=== PATIENT | female | born 1980 | race African-American/Black ===

== ENCOUNTER 2016-05-28 00:54 | Emergency (ER) | payer OTHER ==
[2016-05-28] MEDS ORDERED: ASPIRIN 81 MG TABLET, CHEWABLE PO ONE (03:19)
[2016-05-28 03:25] LABS: ABSOLUTE LYMPHOCYTES (AUTO) 0.9 10^3/uL (0.5-4.7); ABSOLUTE MONOCYTES (AUTO) 0.5 10^3/uL (0.1-1.4); ABSOLUTE NEUT (AUTO) 10.3 10^3/uL (1.7-8.2); BASOPHILS % (AUTO) 0.2 % (0-2); EOSINOPHILS % (AUTO) 0.2 % (0-6); HEMOGLOBIN 10.8 g/dL (12.0-15.5); HGB HCT DIFFERENCE -1.6; LYMPHOCYTES % (AUTO) 7.4 % (13-45); MEAN CORPUSCULAR HEMOGLOBIN 25.1 pg (27.0-33.4); MEAN CORPUSCULAR HGB CONC 31.8 g/dL (32.0-36.0); MEAN CORPUSCULAR VOLUME 79 fl (80-97); MONOCYTES % (AUTO) 4.3 % (3-13); RED BLOOD COUNT 4.31 10^6/uL (3.72-5.28); RED CELL DISTRIBUTION WIDTH 15.4 % (11.5-14.0); SEGMENTED NEUTROPHILS % (AUTO) 87.9 % (42-78); WHITE BLOOD COUNT 11.7 10^3/uL (4.0-10.5)
[2016-05-28 03:40] LABS: ALANINE AMINOTRANSFERASE 258 U/L (9-52); ALBUMIN 4.6 g/dL (3.5-5.0); ALKALINE PHOSPHATASE 154 U/L (38-126); ANION GAP 13 (5-19); ASPARTATE AMINO TRANSFERASE 731 U/L (14-36); BLOOD UREA NITROGEN 7 mg/dL (7-20); CALCIUM 10.5 mg/dL (8.4-10.2); CARBON DIOXIDE 26 mmol/L (22-30); CHLORIDE 103 mmol/L (98-107); CREATINE KINASE 217 U/L (30-135); CREATININE RESULT 0.49 mg/dL (0.52-1.25); GLUCOSE 110 mg/dL (75-110); POTASSIUM 4.4 mmol/L (3.6-5.0); SODIUM 141.7 mmol/L (137-145); TOTAL PROTEIN 8.6 g/dL (6.3-8.2)
[2016-05-28 03:52] LABS: CREATINE KINASE MB 0.23 ng/mL (<4.55)
[2016-05-28 03:57] LABS: TROPONIN I < 0.012 ng/mL
[2016-05-28 04:46] LABS: AMORPHOUS SEDIMENT,URINE TRACE /HPF; APPEARANCE,URINE CLEAR; BILIRUBIN,URINE NEGATIVE (NEGATIVE); GLUCOSE, URINE NEGATIVE (NEGATIVE); KETONES,URINE NEGATIVE (NEGATIVE); LEUKOCYTE ESTERASE,URINE NEGATIVE (NEGATIVE); NITRITE,URINE NEGATIVE (NEGATIVE); PROTEIN,URINE NEGATIVE (NEGATIVE); URINE SPECIFIC GRAVITY 1.006; UROBILINOGEN,URINE NEGATIVE mg/dL (<2.0)
[2016-05-28] MEDS ORDERED: ONDANSETRON HCL INJ/PF 4 MG/2 ML SDV IV ONE (04:51)
[2016-05-28 04:52] LABS: LIPASE 80.8 U/L (23-300)
[2016-05-28] MEDS ORDERED: NORMAL SALINE 1000 ML 1,000 ML IV ONE (04:52)
--- NOTE | 2016-05-28 04:54 | ER Document Report ---
ED General - General Chief Complaint: Chest Pain Stated Complaint: CHEST PAIN/ABDOMINAL PAIN Time seen by provider: 04:45 Notes: Patient is a 35 year old female that comes emergency department for chief complaint of nausea, vomiting, diarrhea, pain in her upper abdomen and chest. Symptoms began as diarrhea, patient states she has had 8 nonbloody episodes, she states she began having chest pain and vomiting, vomited twice and then began dry heaving. When asked where her location of chest pain as she points up near her throat, when asked where her abdominal pain is she points in the epigastric area. She denies fever. Past medical history of hypertension, GERD , denies any early family history of cardiac disease, denies any shortness of breath. TRAVEL OUTSIDE OF THE [place] IN LAST 30 DAYS: No - Related Data Allergies/Adverse Reactions: No Known Allergies Allergy (Unverified 07/08/13 05:27) Past Medical History - General Information source: Patient - Social History Smoking Status: Never Smoker Chew tobacco use (# tins/day): No Frequency of alcohol use: None Drug Abuse: None Lives with: Family Family History: Arthritis, DM, Hyperlipidemia, Hypertension, Malignancy Patient has suicidal ideation: No Patient has homicidal ideation: No - Past Medical History Cardiac Medical History: Reports: Hx Hypertension Neurological Medical History: Reports: Hx Migraine Renal/ Medical History: Denies: Hx Peritoneal Dialysis GI Medical History: Reports: Hx Gastroesophageal Reflux Disease Surgical Hx: Negative - Immunizations Immunizations up to date: Yes Hx Diphtheria, Pertussis, Tetanus Vaccination: Yes Review of Systems - Review of Systems Constitutional: No symptoms reported EENT: No symptoms reported Cardiovascular: See HPI Respiratory: No symptoms reported Gastrointestinal: See HPI Genitourinary: No symptoms reported Female Genitourinary: No symptoms reported Musculoskeletal: No symptoms reported Skin: No symptoms reported Hematologic/Lymphatic: No symptoms reported Neurological/Psychological: No symptoms reported Physical Exam - Vital signs Vitals: Temp Pulse Resp BP Pulse Ox 97.3 F 87 18 123/79 100 05/28/16 01:02 05/28/16 01:02 05/28/16 01:02 05/28/16 01:02 05/28/16 01:02 Interpretation: Normal - General General appearance: Appears well In distress: None - HEENT Head: Normocephalic, Atraumatic Eyes: Normal Conjunctiva: Normal Extraocular movements intact: Yes Eyelashes: Normal Pupils: PERRL Nasal: Normal Mouth/Lips: Normal Mucous membranes: Normal Pharynx: Normal Neck: Normal - Respiratory Respiratory status: No respiratory distress Chest status: Tender - Mildly tender in the mid upper chest Breath sounds: Normal. No: Decreased air movement, Wheezing Chest palpation: Normal - Cardiovascular Rhythm: Regular Heart sounds: Normal auscultation Murmur: No - Abdominal Inspection: Normal Distension: No distension Bowel sounds: Normal Tenderness: Tender - There is some tenderness in the epigastric area, otherwise soft and benign abdomen. No: Guarding Organomegaly: No organomegaly - Back Back: Normal, Nontender. No: Tender - Extremities General upper extremity: Normal inspection, Nontender, Normal color, Normal ROM , Normal temperature General lower extremity: Normal inspection, Nontender, Normal color, Normal ROM , Normal temperature, Normal weight bearing. No: Amy's sign - Neurological Neuro grossly intact: Yes Cognition: Normal Orientation: AAOx4 [place] Coma Scale Eye Opening: Spontaneous [place] Coma Scale Verbal: Oriented [place] Coma Scale Motor: Obeys Commands [place] Coma Scale Total: 15 Speech: Normal Motor strength normal: LUE, RUE, LLE, RLE Sensory: Normal - Psychological Associated symptoms: Normal affect, Normal mood - Skin Skin Temperature: Warm Skin Moisture: Dry Skin Color: Normal Course - Re-evaluation Re-evalutation: EKG sinus rhythm with borderline inverted T-wave in lead 3, slightly flattened T waves inferiorly, no significant change from previous EKG. Cardiac enzymes negative. Chest x-ray unremarkable. Patient's presentation is not consistent with acute coronary syndrome, patient denies any history of early cardiac disease in her family, denies shortness of breath. Patient has some epigastric discomfort on examination, some tenderness over the chest wall in the upper anterior mid chest, exam is normal otherwise. Patient is calm and well-appearing. Patient given GI cocktail because of history of GERD, vomiting, epigastric pain, pain up in her throat area. CBC shows mild leukocytosis, mild microcytic anemia, nonspecific in light of patient's vomiting and diarrhea. Patient denies blood in vomit or bowel movement. Lipase is normal, however LFTs are significantly elevated with AST in the 700s, ALT in the 300s, slightly elevated alkaline phosphatase, however bilirubin is unremarkable. Pending hepatitis panel after discussion with patient. Patient does deny alcohol, denies any obvious exposures or risk factors. Discussed with Dr. Miller, recommend ultrasound of the abdomen, patient is in agreement with this. 05/28/16 Ultrasound shows hepatic steatosis, this was discussed with patient, I still think patient has a virus with or vomiting, diarrhea, epigastric pain. Patient has no symptoms after GI cocktail was given, states she feels good now. Discussed ultrasound, pending hepatic panel, follow-up instructions, symptom management, return precautions with patient and parents. They state understanding and agreement. - Vital Signs Vital signs: Temp Pulse Resp BP Pulse Ox 98.3 F 87 19 118/71 100 05/28/16 07:01 05/28/16 01:02 05/28/16 07:01 05/28/16 07:01 05/28/16 07:01 - Laboratory Result Diagrams: 05/28/16 03:15 05/28/16 03:15 Laboratory results interpreted by me: 05/28/16 05/28/16 05/28/16 03:15 03:15 04:30 WBC 11.7 H Hgb 10.8 L Hct 34.0 L MCV 79 L MCH 25.1 L MCHC 31.8 L RDW 15.4 H Seg Neutrophils % 87.9 H Lymphocytes % 7.4 L Absolute Neutrophils 10.3 H Creatinine 0.49 L Calcium 10.5 H AST 731 H ALT 258 H Alkaline Phosphatase 154 H Creatine Kinase 217 H Total Protein 8.6 H Urine Blood SMALL H Discharge - Discharge Clinical Impression: Nausea vomiting and diarrhea Abdominal pain Qualifiers: Abdominal location: epigastric Qualified Code(s): R10.13 - Epigastric pain Chest pain Qualifiers: Chest pain type: unspecified Qualified Code(s): R07.9 - Chest pain, unspecified Condition: Stable Disposition: HOME, SELF-CARE Additional Instructions: Take the nausea medication and Carafate as prescribed in addition to your current daily medications. Rest, hydrate, follow up with primary care within 1 week. Please follow-up closely for repeat liver functioning tests, we also have pending hepatitis panel , he will be contacted with any concerning results of this. Avoid sexual intercourse until cleared to do so by your primary care physician. Return immediately for any concerning or worsening symptoms including fever, severe abdominal pain, etc. Prescriptions: Ondansetron [Zofran Odt 4 mg Tablet] 1 - 2 tab PO Q4H PRN #15 tab.rapdis PRN Reason: For Nausea/Vomiting Sucralfate [Carafate 1 gm Tablet] 1 gm PO QID PRN #20 tablet PRN Reason: Forms: Return to Work Referrals: BENITA PAYNE MD [Primary Care Provider] - Follow up as needed
[2016-05-28] MEDS ORDERED: MAG HYDROX/AL HYDROX/SIMETH SUSP 30 ML UDCUP PO ONE (05:41)
[2016-05-28] MEDS ORDERED: LIDOCAINE 2% VISCOUS SOLN 20 ML UDCUP PO ONE (05:41)
[2016-05-28] MEDS ORDERED: METOCLOPRAMIDE HCL ORAL SOLN 10 MG/10 ML UDCUP PO ONE (05:41)
[2016-05-28 08:00] VITALS: BP 118/71
--- NOTE | 2016-05-28 10:51 | EKG REPORT ---
SEVERITY:- BORDERLINE ECG - SINUS RHYTHM BORDERLINE T ABNORMALITIES, DIFFUSE LEADS : Confirmed by: Teresa Sims 28-May-2016 10:50:40
== END 2016-05-28 07:25 | disposition home or self-care (01) ==
LOC: ER 00:54
DX: R07.9 Chest pain, unspecified (principal); R11.2 Nausea with vomiting, unspecified; R10.13 Epigastric pain; R19.7 Diarrhea, unspecified; R10.10 Upper abdominal pain, unspecified; I10 Essential (primary) hypertension; K21.9 Gastro-esophageal reflux disease without esophagitis
CPT/HCPCS: 93005; 99285; 96361; 96374; 36415; 82553; 82550; 84702; 83690; 85025; 80053; 81001; 84484; 80074; 71010; 76705; 93010; J3490; J2405; J7030